=== PATIENT | male | born 1955 | race Caucasian/White ===

== ENCOUNTER 2024-09-15 22:08 | Emergency (ER) | payer OTHER, SELFPAY ==
[2024-09-15 22:11] VITALS: BP 130/81
--- NOTE | 2024-09-15 22:43 | ED.GENMED ---
History of Present Illness
<Sophy Wall IMPORT/EXPORT AGENT - Last Filed: 09/18/24 08:17>
General
Chief Complaint: Abdominal Pain
Source: patient and spouse
Exam Limitations: other (Alzheimer's, expressive aphasia)
Time Seen by Provider: 09/15/24 22:29
History of Present Illness
History of Present Illness:
69-year-old male presents with history of Alzheimer's, stroke with expressive aphasia, visual problems presents with who states he's been in steady decline mentally over past 10 years. 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
himself, she states he's been complaining of abdominal pain mostly at night for the past 10 days. He did have a good BM yesterday after she gave him Miralax. Per , he is urinating clear urine, had had no vomiting or diarrhea. Appetite has been
decreased. Otherwise seems to be at his baseline.
Past History
<Sophy Wall, IMPORT/EXPORT AGENT - Last Filed: 09/18/24 08:17>
Past History
ED Past Medical History: Other (Alzheimer's, CVA with aphasia, dysarthria)
ED Past Surgical History: Other (Inguinal hernia)
Social History
Tobacco: Non-smoker
Alcohol: None
Personal:
Living: with family
Review of Systems
<Sophy Wall IMPORT/EXPORT AGENT - Last Filed: 09/18/24 08:17>
Review of Systems
Allergies reviewed?: Yes
All Other Systems: ROS reviewed and negative except as documented in HPI and ROS
Constitutional: Denies fever
Respiratory: Denies trouble breathing
Cardiac: Denies chest pain
ABD/GI: Reports abdominal pain; Denies nausea, vomiting, diarrhea or constipated
Phy Exam
<Sophy Wall, IMPORT/EXPORT AGENT - Last Filed: 09/18/24 08:17>
Physical Exam
Physical Exam:
GENERAL: No acute distress. Alert
CONSTITUTIONAL: Afebrile.
EYES: Clear, conjunctivae normal
ENMT: moist mucus membranes, Pharynx nl
RESPIRATORY: Regular respirations, nonlabored, lungs clear.
CARDIOVASCULAR: Regular rate and rhythm, no murmurs, no rubs.
GI: Soft, generally tender to palpation, nondistended, normal BS
MUSCULOSKELETAL: Moves with ease. Well perfused. No edema
SKIN: Warm, dry, pink
PSYCH: Well kept, interactive
NEUROLOGIC: Awake, alert, aphasic, dysarthric no focal neurological deficits
Course
<Sophy Wall NP - Last Filed: 09/18/24 08:17>
Orders/Labs/Results
Orders:
Orders
09/15/24 22:37
Urinalysis Reflex To Culture Urgent
Date Specimen was Collected: 09/16/24
Time Specimen was Collected: 01:50
09/15/24 22:42
CT Abd/Pel (IV only)-DH only Urgent
Comment:
Reason For Exam: generalized abd pain
09/15/24 22:52
Complete Blood Count/With Diff Urgent
Comprehensive Metabolic Panel Urgent
Lipase Urgent
09/16/24 00:11
Pantoprazole [Protonix IV] 40 mg IV NOW STA
Sucralfate Suspension [Carafate Suspension] 1 gm PO NOW STA
09/16/24 00:12
0.9% Sodium Chloride 500 ml [Nss] 500 ml IV BOLUS
Abnormal Lab Results
09/15/24 09/16/24
22:52 01:51
RBC 4.55 L 10^6/uL
(4.70-6.10)
MCH 31.6 H pg
(27.0-31.0)
Absolute Neuts (auto) 7.4 H 10^3/uL
(1.4-6.5)
Absolute Monos (auto) 1.0 H 10^3/uL
(0.1-0.6)
Lymphocytes % 19.5 L %
(20.5-51.1)
Monocytes % 9.5 H %
(1.7-9.3)
Glucose 123 H mg/dl
(70-99)
Urine Ketones Trace A
(Negative)
09/15/24 22:52
09/15/24 22:52
Vital Signs
Initial and Last Documented VS:
Initial Vital Signs
Temp Pulse Resp BP Pulse Ox
98.1 F 91 19 130/81 96
09/15/24 22:11 09/15/24 22:11 09/15/24 22:11 09/15/24 22:11 09/15/24 22:11
Last Documented Vital Signs
Temp Pulse Resp BP Pulse Ox
98.1 F 82 16 136/83 96
09/15/24 22:11 09/16/24 00:37 09/16/24 00:37 09/16/24 00:37 09/16/24 00:37
<BHANU Keith - Last Filed: 09/16/24 02:04>
Orders/Labs/Results
Orders:
Orders
09/15/24 22:37
Urinalysis Reflex To Culture Urgent
Date Specimen was Collected: 09/16/24
Time Specimen was Collected: 01:50
09/15/24 22:42
CT Abd/Pel (IV only)-DH only Urgent
Comment:
Reason For Exam: generalized abd pain
09/15/24 22:52
Complete Blood Count/With Diff Urgent
Comprehensive Metabolic Panel Urgent
Lipase Urgent
09/16/24 00:11
Pantoprazole [Protonix IV] 40 mg IV NOW STA
Sucralfate Suspension [Carafate Suspension] 1 gm PO NOW STA
09/16/24 00:12
0.9% Sodium Chloride 500 ml [Nss] 500 ml IV BOLUS
Abnormal Lab Results
09/15/24 09/16/24
22:52 01:51
RBC 4.55 L 10^6/uL
(4.70-6.10)
MCH 31.6 H pg
(27.0-31.0)
Absolute Neuts (auto) 7.4 H 10^3/uL
(1.4-6.5)
Absolute Monos (auto) 1.0 H 10^3/uL
(0.1-0.6)
Lymphocytes % 19.5 L %
(20.5-51.1)
Monocytes % 9.5 H %
(1.7-9.3)
Glucose 123 H mg/dl
(70-99)
Urine Ketones Trace A
(Negative)
09/15/24 22:52
09/15/24 22:52
Hyperglycemia. Lipase 92. Urine negative for infection.
Vital Signs
Initial and Last Documented VS:
Initial Vital Signs
Temp Pulse Resp BP Pulse Ox
98.1 F 91 19 130/81 96
09/15/24 22:11 09/15/24 22:11 09/15/24 22:11 09/15/24 22:11 09/15/24 22:11
Last Documented Vital Signs
Temp Pulse Resp BP Pulse Ox
98.1 F 82 16 136/83 96
09/15/24 22:11 09/16/24 00:37 09/16/24 00:37 09/16/24 00:37 09/16/24 00:37
Mckennalt;Sophy Wall, IMPORT/EXPORT AGENT - Last Filed: 09/18/24 08:17>
MDM/Problems Addressed
Differential Diagnosis Includes:
Constipation, diverticulitis, gallbladder disease
MDM/Problems Addressed:
69-year-old male presents with history of Alzheimer's, stroke with expressive aphasia, visual problems presents with who states he's been in steady decline mentally over past 10 years. 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
himself, she states he's been complaining of abdominal pain mostly at night for the past 10 days. He did have a good BM yesterday after she gave him Miralax. Per his , he is urinating clear urine, has had no vomiting or diarrhea. Appetite has
been decreased otherwise seems to be at his baseline.
Afebrile, NAD
Pt with dysarthria as well as aphasia, he does say 'pain' when palpating his abdomen, winces when all areas palpated.
11:10 PM
CBC with no clinically significant abnormality
CMP normal
Lipase normal
Case discussed with Tash France IMPORT/EXPORT AGENT who will assume care from this point
CT and U/A Pending
<BHANU Keith - Last Filed: 09/16/24 02:04>
MDM/Problems Addressed
MDM/Problems Addressed:
69-year-old male presents with history of Alzheimer's, stroke with expressive aphasia, visual problems presents with who states he's been in steady decline mentally over past 10 years. 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
himself, she states he's been complaining of abdominal pain mostly at night for the past 10 days. He did have a good BM yesterday after she gave him Miralax. Per his , he is urinating clear urine, has had no vomiting or diarrhea. Appetite has
been decreased otherwise seems to be at his baseline.
Afebrile, NAD
Pt with dysarthria as well as aphasia, he does say 'pain' when palpating his abdomen, winces when all areas palpated.
11:10 PM
CBC with no clinically significant abnormality
CMP normal
Lipase normal
Case discussed with Tash France IMPORT/EXPORT AGENT who will assume care from this point
CT and U/A Pending
Into see patient and . Reviewed CT report. Will start patient on Protonix and Carafate. Patient has not been able to urinate yet. Will give IV fluids.
<BHANU Keith - Last Filed: 09/16/24 02:04>
*Radiology
Radiology exam reviewed: radiology read reviewed (CT night hawk= Probable infammatory changes surrounding the pancreatic head/duodenum which could represent pancreatitis, or duodenitis clinically correlate. Possible ulceration in the duodenum also
with wall thickening (201/33), again which needs clinical correlation. No free fluid to suggest ) and other (CT cont-perforation. Normal gallbladder, kidneys appendix. )
*Pulse Oximetry
Patient hypoxic: no
*EKG
Interpreted by ED Provider?: NA
Rate: EKG- N/A
*Chief Station Engineer Interpretation
Rate: Chief Station Engineer- N/A
*Critical Care Note
Total Time (30-74mins, 75-104mins- exclusive of procedures): Not Applicable
ED Attending Note
<Sophy Wall NP - Last Filed: 09/18/24 08:17>
-
Portions of this chart may have been created with voice recognition software.� Occasional wrong word or��sound alike� substitutions may have occurred due to the inherent limitations of voice recognition software.
Discharge Plan
Departure
Patient Disposition: Home (Routine Discharge)
Date of Disposition: 09/16/24
Time of Disposition: 01:50
Patient with high blood pressure during this ER visit?: Yes
Condition: Good
Covid-19: Not Applicable
Discharge Problem:
Duodenitis
Instructions: Abdominal Pain, BLOOD PRESSURE
Prescriptions:
New
pantoprazole [Protonix] 40 mg tablet,delayed release (DR/EC)
40 mg PO DAILY Qty: 30 0RF
sucralfate [Carafate] 1 gram tablet
1 g PO ACHS Qty: 40 0RF
Rx Instructions:
Dissolve in 2tsp water and drink. 30min-1hour before meals and HS
Referrals:
Ozzie Kim MD [Family Provider] - Follow up in 2-3 days
Activity Restrictions/Additional Instructions:
As discussed, Your blood work shows that your blood sugar is elevated and this is a nonfasting blood sugar. Your CT shows that this may be duodenitis and that there is some stranding around the pancreatic head. Your Lipase is normal. Please follow
up with the family doctor and your GI specialist for further evaluation. You have had 2 prescriptions sent to your Pharmacy. The first is Carafate which you can dissolve in 2 tsp of water and drink. Please take this 30min to 1 hour before meals and
again at Bedtime. You have also been given a prescription for Protonix that is once daily. IF YOU HAVE INCREASED OR CHANGING PAIN, OR YOU HAVE ANY OTHER CONCERNS PLEASE RETURN TO THE EMERGENCY ROOM.
Interventions
Interventions:
*Risk Screen - Suicide Last Done: 09/15/24 22:11
*General Assessment Last Done: 09/15/24 22:11
*Neglect/Abuse Screening Last Done: 09/15/24 22:11
*Nursing Disposition Last Done: 09/16/24 02:11
OE-Egqacn-Gjtpdtegup Assessment Last Done: 09/15/24 22:54
Discharge Date and Time
Discharge Date/Time: 09/16/24 02:11
Print Language: JORDANIAN
[2024-09-15 23:03] LABS: % Basophils 0.4 % (0-2); % Eosinophils 0.5 % (0-6); % Immature Granulocytes 0.4 % (0-0.5); % Lymphocytes 19.5 % (20.5-51.1); % Monocytes 9.5 % (1.7-9.3); % Neutrophils 69.7 % (42.2-75.2); Absolute Eosinophils 0.1 10^3/uL (0-0.7); Absolute Lymphocytes 2.1 10^3/uL (1.2-3.4); Absolute Neutrophils 7.4 10^3/uL (1.4-6.5); Hematocrit 41.6 % (39.0-52.0); Hemoglobin 14.4 g/dL (13.0-18.0); Mean Corp Hgb Conc. 34.6 g/dL (33.0-37.0); Mean Corpuscular Hgb 31.6 pg (27.0-31.0); Mean Corpuscular Volume 91.4 fL (80.0-94.0); Nucleated Red Blood Cells % 0 % (-); Platelet Count 378 10^3/uL (130-400); Red Blood Cell Count 4.55 10^6/uL (4.70-6.10); Red Cell Dist. Width 12.6 % (11.5-14.5); White Blood Cell Count 10.6 10^3/uL (4.8-10.8)
[2024-09-15 23:25] LABS: ALT (SGPT) 36 U/L (0-50); AST (SGOT) 22 U/L (17-59); Alkaline Phosphatase 65 U/L (38-126); Blood Urea Nitrogen 13 mg/dl (9-20); Calcium 9.1 mg/dl (8.4-10.2); Carbon Dioxide 24 mmol/L (22-30); Chloride 105 mmol/L (98-107); Glucose 123 mg/dl (70-99); Lipase 92 U/L (23-300); Potassium 4.2 mmol/L (3.5-5.1); Sodium 140 mmol/L (135-145); Total Bilirubin 0.4 mg/dl (0.2-1.3); Total Protein 6.6 g/dl (6.3-8.2); eGFR > 60.00
[2024-09-16] MEDS: CARAFATE SUSPENSION 1 GM PO (00:31)
[2024-09-16] MEDS: PROTONIX IV 40 MG IV (00:31)
[2024-09-16] MEDS: NSS 500 IV (00:31)
[2024-09-16 00:37] VITALS: BP 136/83
[2024-09-16 02:00] LABS: Urine Albumin Trace (Neg - Trace); Urine Bilirubin Negative (Negative); Urine Character Clear (Clear); Urine Color Yellow; Urine Glucose Negative (Negative); Urine Ketone Trace (Negative); Urine Leukocyte Negative (Negative); Urine Nitrite Negative (Negative); Urine Occult Blood Negative (Negative); Urine Specific Gravity 1.005 (<1.030); Urine Urobilinogen Negative (Neg - 1+)
== END 2024-09-16 02:11 | disposition home or self-care (01) ==
LOC: EMR 22:08
PROVIDERS: Registered Nurse; EMERGENCY PHYSICIAN Emergency Medicine; FAMILY PHYSICIAN Family Medicine
DX: K29.80 Duodenitis without bleeding (principal); G30.9 Alzheimer's disease, unspecified; F02.80 Dementia in other diseases classified elsewhere, unspecified severity, without behavioral disturbance, psychotic disturbance, mood disturbance, and anxiety; I69.920 Aphasia following unspecified cerebrovascular disease
CPT/HCPCS: 99284; 96374; 96361; 74177; 80053; 81003; 83690; 85025; Q9967